=== PATIENT | male | born 1975 | race Caucasian/White ===

== ENCOUNTER 2023-05-04 08:36 | Outpatient (REF) | payer OTHER, SELFPAY ==
--- NOTE | ~2023-05-04 | XR_ITS ---
EXAMINATION: XR THORACIC SPINE CLINICAL INFORMATION: Reason for Exam spondylosis COMPARISON: None TECHNIQUE: 3 views of the thoracic spine FINDINGS: Vertebral body heights are maintained. Alignment is maintained. Mild multilevel degenerative disc disease with multilevel loss of disc space height. Paravertebral soft tissues are unremarkable. XR/XR thoracic spine 2V IMPRESSION: Mild multilevel degenerative disc disease.
== END 2023-05-04 08:37 | disposition home or self-care (01) ==
LOC: HO.XRAY 08:36
PROVIDERS: PCP Internal Medicine; Visit Provider Physical Medicine & Rehabilitation
DX: M47.814 Spondylosis without myelopathy or radiculopathy, thoracic region (principal)
CPT/HCPCS: 72070

== ENCOUNTER 2024-06-26 07:25 | Outpatient (REF) | payer BC, SELFPAY ==
--- NOTE | ~2024-06-26 | XR_ITS ---
EXAMINATION: XR ABDOMEN KUB CLINICAL INDICATION: Kidney stone COMPARISON: Renal ultrasound 07/10/2018, axillary abdomen 09/07/2020 TECHNIQUE: 2 AP views of the abdomen. FINDINGS: Mild degenerative changes in the spine with dextroscoliosis. Moderate amount of stool in the colon. Nonobstructive bowel gas pattern. Small calcifications overlying the right renal interpolar region measuring up to 5 mm. No definitive left renal calculi are appreciated. Evaluation of the bilateral kidneys is limited due to overlying bowel. XR/XR abdomen 1V IMPRESSION: Small calcifications overlying the right renal interpolar region measuring up to 5 mm. No definitive left renal calculi are appreciated. Evaluation of the bilateral kidneys is limited due to overlying bowel. Electronically signed by: Mary Almanzar MD 06/26/2024 08:53 AM EDT
== END 2024-06-26 07:26 | disposition home or self-care (01) ==
LOC: HO.XRAY 07:25
PROVIDERS: PCP Internal Medicine; Visit Provider Internal Medicine
DX: N20.0 Calculus of kidney (principal)
CPT/HCPCS: 74018

== ENCOUNTER 2025-04-05 07:46 | Outpatient (REF) | payer BC, SELFPAY ==
--- NOTE | ~2025-04-05 | XR_ITS ---
EXAMINATION: XR ABDOMEN KUB CLINICAL INDICATION: CALCULUS OF KIDNEY COMPARISON: KUB 06/26/2024 TECHNIQUE: AP view of the abdomen. FINDINGS: There is moderate stool in right colon overlying the right kidney restricted kidney evaluation. No radiopaque calculi seen in left kidney. Rest of the bowel gas pattern is normal with no evidence of ileus or obstruction. No unusual soft tissue calcifications are noted. The bones are unremarkable. XR/XR KUB IMPRESSION: Unremarkable KUB examination. No radiopaque calculi seen however limited due to bowel gas overlying the right kidney Electronically signed by: Og Phillips MD 04/07/2025 09:29 AM EDT
== END 2025-04-05 07:47 | disposition home or self-care (01) ==
LOC: HO.XRAY 07:46
PROVIDERS: PCP Internal Medicine; Visit Provider Student in an Organized Health Care Education/Training Program
DX: N20.0 Calculus of kidney (principal)
CPT/HCPCS: 74018

== ENCOUNTER → 2025-04-05 07:50 | Outpatient (BNV) | payer BC, SELFPAY | PROVIDERS: PCP Internal Medicine; Visit Provider Radiology Diagnostic Radiology | DX: Z87.442 Personal history of urinary calculi (principal) | CPT/HCPCS: 74018 ==